=== PATIENT | female | born 1990 | race Caucasian/White ===

== ENCOUNTER 2023-05-18 18:14 | Emergency (ER) | payer MEDICAID ==
[~2023-05-18] VITALS: Ht 152.4 cm; Wt 46.7 kg
[2023-05-18 18:15] VITALS: BP_SYST 128
[2023-05-18] MEDS ORDERED: MECLIZINE HCL 25 MG TABLET (ANITVERT) PO ONE (18:45)
[2023-05-18] MEDS ORDERED: ONDANSETRON 4 MG ODT TAB PO ONE (18:45)
[2023-05-18] MEDS ORDERED: IBUPROFEN 800 MG TABLET PO ONE (18:45)
[2023-05-18 19:37] LABS: BASOPHILS % (AUTO) 0.5 % (0.0-2.0); EOSINOPHILS # (AUTO) 0.1 K/uL (0.0-0.4); HEMATOCRIT 35.2 % (36-48); HEMOGLOBIN 12.1 g/dL (12.0-16.0); LYMPHOCYTES # (AUTO) 3.1 K/uL (1.0-5.5); LYMPHOCYTES % (AUTO) 35.2 % (20.5-51.5); MEAN CORPUSCULAR HEMOGLOBIN 29 pg (27-31); MEAN CORPUSCULAR HGB CONC 34 % (32-36); MEAN CORPUSCULAR VOLUME 86 fL (79.0-98.0); MONOCYTES # (AUTO) 0.9 K/uL (0.0-1.0); MONOCYTES % (AUTO) 9.8 % (1.7-9.3); NEUTROPHILS # (AUTO) 4.6 K/uL (1.8-7.7); NEUTROPHILS % (AUTO) 53.5 % (40.0-70.0); PLATELET COUNT (AUTO) 292 K/uL (130-430); RED BLOOD CELL COUNT(AUTO) 4.11 MIL/uL (4.2-6.2); RED CELL DISTRIBUTION WIDTH 12.4 % (9.0-15.0); WHITE BLOOD COUNT (AUTO) 8.7 K/uL (4.8-10.8)
[2023-05-18 19:47] LABS: CALCIUM 8.6 mg/dL (8.4-11.0); CREATININE 0.75 mg/dL (0.55-1.30)
[2023-05-18 19:51] LABS: ALBUMIN 3.4 g/dL (3.4-4.8); TOTAL BILIRUBIN 0.2 mg/dL (0.0-1.0)
[2023-05-18] MEDS ORDERED: MECL-261 PO (20:48)
[2023-05-18] MEDS ORDERED: ONDA-8 TL (20:48)
[2023-05-18 21:09] VITALS: BP_SYST 128
== END 2023-05-18 21:09 | disposition home or self-care (01) ==
LOC: SED 18:14
DX: H61.22 Impacted cerumen, left ear (principal); H81.12 Benign paroxysmal vertigo, left ear; R11.0 Nausea; Z79.899 Other long term (current) drug therapy
CPT/HCPCS: 99284; 80053; 84703; 85025; 36415; 69209; 93005; J8597; Q0162